=== PATIENT | female | born 2000 | race Two or more races ===

== ENCOUNTER → 2024-07-20 09:43 | Outpatient (CLI) | payer OTHER | END | disposition home or self-care (01) | LOC: PRENATAL 09:43 | PROVIDERS: ATTEND Obstetrics & Gynecology Maternal & Fetal Medicine | DX: O35.3XX0 Maternal care for (suspected) damage to fetus from viral disease in mother, not applicable or unspecified (principal); O44.00 Complete placenta previa NOS or without hemorrhage, unspecified trimester; Z3A.20 20 weeks gestation of pregnancy ==

== ENCOUNTER → 2024-10-01 10:15 | Outpatient (CLI) | payer OTHER | END | disposition home or self-care (01) | LOC: PRENATAL 10:15 | PROVIDERS: ATTEND Obstetrics & Gynecology Maternal & Fetal Medicine | DX: O26.849 Uterine size-date discrepancy, unspecified trimester (principal); O36.8199 Decreased fetal movements, unspecified trimester, other fetus; O28.3 Abnormal ultrasonic finding on antenatal screening of mother; O40.1XX0 Polyhydramnios, first trimester, not applicable or unspecified; Z3A.32 32 weeks gestation of pregnancy ==

== ENCOUNTER → 2024-10-05 09:41 | Outpatient (CLI) | payer OTHER | END | disposition home or self-care (01) | LOC: PRENATAL 09:41 | PROVIDERS: ATTEND Obstetrics & Gynecology Maternal & Fetal Medicine | DX: Z76.1 Encounter for health supervision and care of foundling (principal) ==

== ENCOUNTER 2024-11-01 10:03 | Outpatient (CLI) | payer OTHER ==
[2024-11-02] MEDS ORDERED: PRENATABS RX T1 EACH PO (10:45)
== END 2024-11-01 12:41 | disposition home or self-care (01) ==
LOC: PRENATAL 10:03
PROVIDERS: ATTEND Obstetrics & Gynecology Maternal & Fetal Medicine
DX: O26.849 Uterine size-date discrepancy, unspecified trimester (principal); O36.8199 Decreased fetal movements, unspecified trimester, other fetus; O28.3 Abnormal ultrasonic finding on antenatal screening of mother; O99.019 Anemia complicating pregnancy, unspecified trimester; Z3A.35 35 weeks gestation of pregnancy

== ENCOUNTER 2024-12-01 07:32 | Inpatient (IN) | payer OTHER ==
[~2024-12-01] VITALS: Ht 154.9 cm; Wt 80.3 kg
[~2024-12-01 07:32] MED LIST: PRENATABS RX T1 EACH PO
[2024-12-01 08:25] VITALS: BP 100/63; O2SAT 100
[2024-12-01 08:41] VITALS: BP 100/63
[2024-12-01] MEDS ORDERED: IRON325 MG PO (08:41)
[2024-12-01] MEDS ORDERED: AMPICILLIN SODIUM 2,000 MG VIAL IV SCH (08:42)
[2024-12-01] MEDS ORDERED: RINGERS SOLUTION,LACTATED 1,000 ML IV SCH (08:45)
[2024-12-01 10:13] LABS: PH,URINE 6.5 (5.0-8.0); URINE APPEARANCE Clear; URINE BILIRRUBIN Negative (NEGATIVE); URINE BLOOD Moderate; URINE COLOR Yellow; URINE GLUCOSE Negative (NEGATIVE); URINE KETONE Negative (NEGATIVE); URINE LEUKOCYTE Negative; URINE NITRATE Negative; URINE PROTEIN Negative (NEGATIVE); URINE UROBILINOGEN 0.2 E.U./dl
[2024-12-01 10:14] LABS: URINE BACTERIA 48.9 uL (0.0-1933); URINE EPITHELIAL CELLS 3.6 uL (0.0-38.8); URINE RBC 281.6 uL (0.0-20.8); URINE WBC 12.5 uL (0.0-23.2)
[2024-12-01 10:21] LABS: URINE CAST 0.58 uL (0.0-1.40)
[2024-12-01 10:23] LABS: URINE CRYSTALS FEW /HPF
[2024-12-01 10:28] LABS: INR 1.03; PARTIAL THROMBOPLASTIN TIME 28.4 SECONDS (22.0-34.0); PROTHROMBIN TIME 11.2 SECONDS (9.0-11.5)
[2024-12-01 11:04] VITALS: BP 92/61; O2SAT 99
[2024-12-01 11:07] LABS: ALBUMIN 2.6 gm/dL (3.4-5.0); BILIRUBIN TOTAL 0.49 mg/dL (0.3-1.2); CALCIUM 8.8 mg/dL (8.5-10.1); CREATININE SERUM 0.51 mg/dL (0.55-1.02); GFR 146.93; GLOBULINA 4.3 G/DL (2.4-3.5); POTASSIUM 4.13 mEq/L (3.5-5.1); TOTAL PROTEIN 6.9 gm/dL (6.4-8.2)
[2024-12-01 11:16] LABS: HEMATOCRIT 31.8 % (36.0-45.00); HEMOGLOBIN 10.3 g/dL (12.0-15.00); MEAN CELL VOLUME 76.2 fL (80.00-100.00); MEAN CORPUSCULAR HEMOGLOBIN 24.6 pg (27.00-32.0); MEAN CORPUSCULAR HGB CONC 32.3 g/dl (32.0-36.0); PLATELET COUNT 315 K/uL (150-450); RED BLOOD COUNT 4.17 M/uL (4.00-6.00); RED CELL DISTRIBUTION WIDTH 20.7 % (11.5-14.5)
[2024-12-01] MEDS ORDERED: MISOPROSTOL 25 MCG/4 ML GEL.W.APPL VAG ONE ×2 (12:00→17:15)
[2024-12-01 15:22] VITALS: BP 94/61
[2024-12-01] MEDS ORDERED: MISOPROSTOL 25 MCG/4 ML GEL.W.APPL ONE (17:09)
[2024-12-01 20:00] VITALS: BP 111/72
[2024-12-01 23:28] VITALS: BP 112/89
[2024-12-02] VITALS (7 sets, daily range): BP systolic 95–111; BP diastolic 54–69
[2024-12-02] MEDS ORDERED: TERBUTALINE SULFATE 1 MG/ML AMPUL SUBCUTANEO ONE (03:00)
[2024-12-02] MEDS ORDERED: NIFEDIPINE 30 MG TAB.SA.OSM PO STA (20:35)
[2024-12-02] MEDS ORDERED: NIFEDIPINE 30 MG TAB.SA.OSM PO ONE (23:00)
[2024-12-03] MEDS ORDERED: OXYTOCIN 10 UNITS/ML VIAL ONE (03:06)
[2024-12-03] MEDS ORDERED: ERYTHROMYCIN BASE OPHT 1GM EACH TUBE OP ONE (03:07)
[2024-12-03] MEDS ORDERED: MORPHINE SULFATE 4 MG/ML CARTRIDGE IV PRN (04:30)
[2024-12-03] MEDS ORDERED: DOCUSATE SODIUM 100MG CAP PO SCH (04:31)
[2024-12-03] MEDS ORDERED: MORPHINE SULFATE 4 MG/ML VIAL IV ONE ×2 (05:35→06:05)
[2024-12-03] MEDS ORDERED: AMPICILLIN SODIUM 1,000 MG VIAL ONE (07:11)
[2024-12-03 08:17] VITALS: BP 102/64
[2024-12-03 16:10] VITALS: BP 104/70
[2024-12-03] MEDS ORDERED: OxyCODONE HCL/APAP UD (PERCOCET) PO PRN (18:00)
[2024-12-03 23:58] VITALS: BP 108/73
[2024-12-04 08:53] VITALS: BP 97/63
[2024-12-04 16:25] VITALS: BP 115/77
[2024-12-05] VITALS: BP 107/71
[2024-12-05 08:15] VITALS: BP 102/67
[2024-12-05 16:07] VITALS: BP 93/59
== END 2024-12-05 16:38 | disposition home or self-care (01) | DRG 785 ==
LOC: OB/GYN 07:32 → LDR 07:32 → OB/GYN 12-03 05:00
PROVIDERS: ADMIT Obstetrics & Gynecology Obstetrics; ATTEND Obstetrics & Gynecology Obstetrics
PROC: 4A1HXCZ Monitoring of Products of Conception, Cardiac Rate, External Approach (ICD-10-PCS; 2024-12-01)
PROC: 0UB70ZZ Excision of Bilateral Fallopian Tubes, Open Approach (ICD-10-PCS; 2024-12-03)
PROC: 10D00Z1 Extraction of Products of Conception, Low, Open Approach (ICD-10-PCS; principal; 2024-12-03 07:00)
DX: O34.211 Maternal care for low transverse scar from previous cesarean delivery (principal); Z30.2 Encounter for sterilization; O99.824 Streptococcus B carrier state complicating childbirth; Z37.0 Single live birth; Z3A.40 40 weeks gestation of pregnancy

== ENCOUNTER → 2024-12-14 | Emergency (ER) | payer OTHER ==
[~2024-12-14] MED LIST changes: +IRON325 MG PO
== END | disposition left against medical advice (07) ==
LOC: ER 20:13
DX: Z53.21 Procedure and treatment not carried out due to patient leaving prior to being seen by health care provider (principal)